=== PATIENT | female | born 1965 | race Two or more races ===

== ENCOUNTER → 2017-06-24 | Outpatient (CLI) | payer OTHER ==
[~2017-06-24] MED LIST: ANTIVERT12.5 MG PO; FLONASE16 G1 NS
== END | disposition home or self-care (01) ==
LOC: MAMO-SONO 07:42
DX: Z12.31 Encounter for screening mammogram for malignant neoplasm of breast (principal); N64.89 Other specified disorders of breast; N64.59 Other signs and symptoms in breast

== ENCOUNTER → 2017-07-13 | Outpatient (CLI) | payer OTHER ==
[~2017-07-13] VITALS: Ht 121.9 cm; Wt 60.8 kg
== END | disposition home or self-care (01) ==
LOC: PPHC 16:41
DX: Z01.89 Encounter for other specified special examinations (principal)

== ENCOUNTER 2018-04-12 17:46 | Outpatient (CLI) | payer OTHER | END 2018-04-12 19:41 | disposition home or self-care (01) | LOC: LAB 17:46 | DX: N39.0 Urinary tract infection, site not specified (principal); M54.5 Low back pain ==

== ENCOUNTER → 2018-08-30 | Outpatient (CLI) | payer OTHER | END | disposition home or self-care (01) | LOC: NUCLEAR 10:30 | DX: M81.0 Age-related osteoporosis without current pathological fracture (principal); Z13.820 Encounter for screening for osteoporosis ==

== ENCOUNTER → 2020-01-02 06:59 | Outpatient (CLI) | payer OTHER | END | disposition home or self-care (01) | LOC: LAB 06:59 | PROVIDERS: ATTEND Internal Medicine Endocrinology, Diabetes & Metabolism | DX: M83.8 Other adult osteomalacia (principal); I10 Essential (primary) hypertension; E78.2 Mixed hyperlipidemia; E04.1 Nontoxic single thyroid nodule ==

== ENCOUNTER 2020-03-08 08:00 | Outpatient (CLI) | payer OTHER | END 2020-03-08 15:00 | disposition home or self-care (01) | LOC: PPH VACUNA 08:00 | DX: Z23 Encounter for immunization (principal) ==

== ENCOUNTER → 2020-03-09 07:34 | Outpatient (CLI) | payer OTHER | END | disposition home or self-care (01) | LOC: LAB 07:34 | PROVIDERS: ATTEND Specialist | DX: J45.998 Other asthma (principal) ==

== ENCOUNTER 2020-06-04 06:44 | Outpatient (CLI) | payer OTHER | END 2020-06-04 07:05 | disposition home or self-care (01) | LOC: LAB 06:44 | DX: E03.8 Other specified hypothyroidism (principal); I10 Essential (primary) hypertension; E78.2 Mixed hyperlipidemia; M83.8 Other adult osteomalacia ==

== ENCOUNTER 2020-07-04 10:44 | Outpatient (CLI) | payer OTHER | END 2020-07-04 10:47 | disposition HB | LOC: SONOGRAMA 10:44 → MAMO-SONO 10:45 → SONOGRAMA 10:47 | DX: D25.0 Submucous leiomyoma of uterus (principal); R10.2 Pelvic and perineal pain; N94.0 Mittelschmerz; N94.89 Other specified conditions associated with female genital organs and menstrual cycle ==

== ENCOUNTER → 2020-10-15 09:35 | Outpatient (CLI) | payer OTHER | END | disposition home or self-care (01) | LOC: LAB 09:35 | PROVIDERS: ATTEND Radiology Diagnostic Radiology | DX: R42 Dizziness and giddiness (principal) ==

== ENCOUNTER 2020-11-30 08:34 | Outpatient (CLI) | payer OTHER | END 2020-11-30 08:41 | disposition home or self-care (01) | LOC: NUCLEAR 08:34 | PROVIDERS: ATTEND Internal Medicine | DX: R00.2 Palpitations (principal); R07.89 Other chest pain ==

== ENCOUNTER 2020-12-03 07:07 | Outpatient (CLI) | payer OTHER | END 2020-12-03 07:13 | disposition home or self-care (01) | LOC: NUCLEAR 07:07 | PROVIDERS: ATTEND Internal Medicine | DX: R00.2 Palpitations (principal) ==

== ENCOUNTER → 2021-01-15 14:20 | Outpatient (CLI) | payer OTHER | END | disposition home or self-care (01) | LOC: LAB 14:20 | PROVIDERS: ATTEND Internal Medicine | DX: J44.1 Chronic obstructive pulmonary disease with (acute) exacerbation (principal) ==

== ENCOUNTER 2021-02-27 11:10 | Outpatient (CLI) | payer OTHER | END 2021-02-27 11:26 | disposition home or self-care (01) | LOC: LAB 11:10 | PROVIDERS: ATTEND Internal Medicine | DX: R05 Cough (principal); J11.1 Influenza due to unidentified influenza virus with other respiratory manifestations; Z11.52 Encounter for screening for COVID-19 ==

== ENCOUNTER 2021-07-03 10:42 | Outpatient (CLI) | payer OTHER | END 2021-07-03 10:43 | disposition home or self-care (01) | LOC: LAB 10:42 | PROVIDERS: ATTEND Internal Medicine | DX: N39.0 Urinary tract infection, site not specified (principal) ==

== ENCOUNTER → 2021-08-14 07:37 | Outpatient (CLI) | payer OTHER | END | disposition home or self-care (01) | LOC: LAB 07:37 | PROVIDERS: ATTEND Internal Medicine Gastroenterology | DX: K29.40 Chronic atrophic gastritis without bleeding (principal); K29.30 Chronic superficial gastritis without bleeding; Z12.11 Encounter for screening for malignant neoplasm of colon; Z13.0 Encounter for screening for diseases of the blood and blood-forming organs and certain disorders involving the immune mechanism; E03.8 Other specified hypothyroidism; E78.1 Pure hyperglyceridemia; E11.9 Type 2 diabetes mellitus without complications; E55.9 Vitamin D deficiency, unspecified ==

== ENCOUNTER → 2022-01-19 | Emergency (ER) | payer OTHER ==
[~2022-01-19] VITALS: Ht 149.9 cm; Wt 63.5 kg
== END | disposition home or self-care (01) ==
LOC: ER 12:52
DX: N39.0 Urinary tract infection, site not specified (principal); K52.89 Other specified noninfective gastroenteritis and colitis